=== PATIENT | female | born 1975 | race Caucasian/White ===

== ENCOUNTER → 2017-11-06 | Outpatient (CLI) | payer OTHER | LOC: MC.RAD 10-18 09:40 | DX: Z12.31 Encounter for screening mammogram for malignant neoplasm of breast (principal); R92.8 Other abnormal and inconclusive findings on diagnostic imaging of breast ==

== ENCOUNTER → 2017-11-13 | Outpatient (CLI) | payer OTHER | LOC: MC.RAD 13:59 | DX: N64.89 Other specified disorders of breast (principal) ==